=== PATIENT | male | born 1965 | race Caucasian/White ===

== ENCOUNTER 2016-06-06 21:05 | Emergency (ER) | payer OTHER ==
[~2016-06-06] VITALS: Ht 165.1 cm; Wt 60.8 kg
--- NOTE | ~2016-06-06 | EKG ---
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: [facility] : 1965 Requested By: Lillian Cunningham Order Number: [id number] MD: Salazar De Luna Measurements Intervals [place] Rate: 111 P: 78 WI: 154 QRS: -29 QRSD: 93 T: 87 QT: 371 QTc: 504 Interpretive Statements Sinus tachycardia Biatrial enlargement LVH with secondary repolarization abnormality Prolonged QT interval Compared to ECG 05/28/2016 14:10:46 significant change was found Electronically Signed On 06-07-2016 9:02:25 CDT by Salazar De Luna [email or web address] <ELECTRONICALLY SIGNED> By: Salazar De Luna MD, [facility] 06/07/16901 15 15 Salazar De Luna MD, FACC /EPI
[~2016-06-06 21:05] MED LIST: COREG3.125 MG PO; HYDRALAZINE 2525 MG PO; [UNRECOGNIZED DRUG - OTHER] MC
[2016-06-06] MEDS ORDERED: ASPIR 8181 M1 PO (21:15)
[2016-06-06 22:07] LABS: ABSOLUTE NEUTROPHILS 6.2 thou/uL (1.4-8.2); BASOPHILS 0.9 % (0.0-2.0); EOSINOPHILS 5.9 % (0.0-3.0); HEMATOCRIT 51.1 % (42.0-52.0); HEMOGLOBIN 17.6 gm/dL (14.0-18.0); LYMPHOCYTES 19.1 % (24.0-44.0); MCH 31.9 pg (26.0-34.0); MCHC 34.4 g/dL (28.0-37.0); MCV 92.9 fL (80.0-100.0); MONOCYTES 4.5 % (1.0-8.0); PLATELET COUNT 231 thou/uL (150-400); POLYS 69.6 % (36.0-66.0); RDW 13.5 % (10.5-14.5); WBC 8.9 thou/uL (4.0-11.0)
[2016-06-06 22:12] LABS: MANUAL DIFF NO
[2016-06-06 22:18] LABS: ANION GAP 9 mmol/L (7-16); BUN 18 mg/dL (7-18); CALCIUM 8.6 mg/dL (8.5-10.1); CHLORIDE 104 mmol/L (98-107); CO2 27 mmol/L (21-32); GLUCOSE 107 mg/dL (74-106); POTASSIUM 4.3 mmol/L (3.5-5.1); SODIUM 140 mmol/L (136-145)
[2016-06-06 22:21] LABS: APTT 28.5 Seconds (24.5-32.8); INR 1.1; PROTIME 11.5 Seconds (9.3-11.4)
[2016-06-06 22:25] LABS: ALBUMIN 3.3 g/dL (3.4-5.0); ALKALINE PHOSPHATASE 99 U/L (46-116); SGOT 36 U/L (15-37); SGPT 30 U/L (30-65); TOTAL BILIRUBIN 0.4 mg/dL (<0.1-1.0); TROPONIN-I < 0.04 ng/mL (<0.04-0.07)
[2016-06-07] MEDS ORDERED: HYDRALAZINE 2525 MG PO (00:19)
[2016-06-07 00:27] VITALS: BP 144/82
== END 2016-06-07 00:29 | disposition home or self-care (01) ==
LOC: ER 21:05
PROVIDERS: Emergency Medicine
DX: I16.0 Hypertensive urgency (principal); R20.2 Paresthesia of skin; I10 Essential (primary) hypertension; F17.210 Nicotine dependence, cigarettes, uncomplicated